=== PATIENT | female | born 1985 | race African-American/Black ===

== ENCOUNTER 2022-09-23 20:49 | Inpatient (IN) | payer OTHER, SELFPAY ==
[2022-09-23 21:55] VITALS: BMI 25.8
--- NOTE | 2022-09-23 23:39 | PC.ADMIT ---
Pt is a 37-year-old female who has a history of schizophrenia, presented via EMS for evaluation of erratic behavior to [facility] ED. Apparently, the patient was walking home from her brother's house when she was exhibiting odd behavior, flashing her chest to cars that were passing by. History from patient is quite limited at this time. She denies any physical complaints. She denies any suicidal homicidal ideation. No auditory visual hallucinations. . She currently presents with thought blocking and presents with no memory of last night?s incident. She appears to be preoccupied.??Patient reporting mild anxiety and depression. States that she is now homeless and needs a new place to live. Patient denies any SI, AH, or VH. Patient does endorse some HI but did not elaborate to who she has these feelings for. Patient reported generalized body aches. Patient was cooperative with admission.
[2022-09-24] MEDS: Cariprazine HCl 3 MG CAPSULE PO (08:11)
[2022-09-24 08:47] VITALS: BP 126/76; PULSE 84; RESP 18; TEMP 36.3; O2SAT 94
[2022-09-24] MEDS: glipiZIDE 5 MG TABLET PO (09:02)
[2022-09-24] MEDS: lisinopriL 5 MG TABLET PO (09:02)
[2022-09-24 09:12] LABS: Estimated Average Glucose 292 mg/dL; Hemoglobin A1c % 11.8 %
[2022-09-24 09:41] LABS: Alanine Aminotransferase 34 U/L (0-31); Albumin Level 4.2 g/dL (3.5-5.0); Alkaline Phosphatase 80 U/L (39-117); Anion Gap 12 (12-20); Aspartate Amino Transferase 22 U/L (5-31); Bilirubin Total 0.8 mg/dL (0.0-1.0); Blood Urea Nitrogen 12 mg/dL (9-16); Calcium 9.6 mg/dL (8.4-10.2); Carbon Dioxide 25 mmol/L (22-29); Chloride 104 mmol/L (96-108); Cholesterol 257 mg/dL; Creatinine Clr Calc Pharmacy 87.4; Estimated Glomerular Filt Rate > 60; Glucose Fasting 274 mg/dL (60-99); HDL Cholesterol 48 mg/dL; LDL Cholesterol Calculated 135 mg/dl; Potassium 4.7 mmol/L (3.3-5.1); Sodium 136 mmol/L (135-145); Total Protein 7.4 g/dL (6.5-8.0); Triglycerides 374 mg/dL
[2022-09-24 10:01] LABS: Folate 14.9 ng/mL (> or = 4.0); Free T4 (Free Thyroxine) 0.97 ng/dL (0.71-1.85); Thyroid Stimulating Hormone 0.63 uIU/mL (0.32-4.0); Vitamin B12 492 pg/mL (200-900)
--- NOTE | 2022-09-24 10:05 | P.HPPS_ITS ---
HPI Date of Service: 09/24/22 Chief Complaint: Unspecified Schizophrenia Disorder HPI Narrative: per crisis eval, pt was wandering on the street flashing her chest at passing cars. police/EMS brought her to ED for psych eval. she was unable to provide much Hx to clinicians, asking to be discharged to her brother's home. [facility] noted pt was RIS and cited as her CC, they said i was scratching too much. on interview with MD at [facility], pt reports she is here because, i got energy. they told me i was crashing. 24 hours. i'm not looking for a spirit or something. she states she does not think medication for schizophrenia is warranted. she has no questions or concerns. she appears distracted, with disorganized and blocked thoughts. Past Psychiatric History: schizophrenia by Hx hosps: a few times. numerous, per crisis eval. SA: denies SIB: denies outpt: no current providers Medical Evaluation Reviewed: Hospitalist Eval Pending [facility] Medical History HTN (hypertension) Type 2 diabetes mellitus Family History: denies, none known Social History: per crisis eval, lives with her mother and sometimes stays at her brother's house. stable housing, supportive family. born in [place], moved to [place] as a child. left HS in 9th grade. Substance History: denies, none known Trauma History: none reported Diagnostics Vital Signs (24Hr): Vital Signs - 24 hr 09/24/22 08:47 Temperature 97.4 F Pulse Rate 84 Respiratory Rate 18 Blood Pressure 126/76 Pulse Oximetry 94 Oxygen Delivery Method Room Air BMI result Body Mass Index 25.8 Labs 09/24/22 08:44 Labs: Laboratory Results - last 48 hr 09/24/22 09/24/22 08:44 08:44 Sodium 136 Potassium 4.7 Chloride 104 Carbon Dioxide 25 Anion Gap 12 BUN 12 Creatinine 0.85 Estim Creat Clear Calc 87.4 Estimated GFR > 60 Fasting Glucose 274 H Estimat Average Glucose 292 Hemoglobin A1c % 11.8 Calcium 9.6 Total Bilirubin 0.8 AST 22 ALT 34 H Alkaline Phosphatase 80 Total Protein 7.4 Albumin 4.2 Triglycerides 374 Cholesterol 257 LDL Cholesterol, Calc 135 HDL Cholesterol 48 Vitamin B12 492 Folate 14.9 TSH 0.63 Free T4 0.97 Meds/Allergies Meds Home Medications Medication Instructions Recorded Confirmed Type cariprazine 3 mg capsule (Vraylar) 3 mg PO DAILY 09/23/22 09/23/22 History diphenhydramine HCl 50 mg capsule 50 mg PO Q4-6H PRN Allergic 09/23/22 09/23/22 History Symptoms glipizide 5 mg tablet 5 mg PO DAILY 09/23/22 09/23/22 History lisinopril 5 mg tablet 5 mg PO DAILY 09/23/22 09/23/22 History metformin 500 mg tablet,extended 500 mg PO DAILY@1700 09/23/22 09/23/22 History release 24 hr Allergies Allergies Allergy/AdvReac Type Severity Reaction Status Date / Time No Known Allergies Allergy Verified 09/23/22 21:19 Mental Status Exam Mental Status Exam Narrative: disheveled, dressed in street clothes. cooperative. no PMA/PMR. speech decr amount, loudness. flattened tone. incr latency. thoughts disorganized, intermittently blocked. affect blunted. mood sleepy. denies SI/SIBI/HI/AVH. Assessment & Plan Assessment & Plan (1) Schizophrenia: Status: Acute Code(s): F20.9 - Schizophrenia, unspecified Plan restart vraylar, titrate as tolerated. continue BP meds. Patient educated on: medication risk/benefits Reason for continued inpatient stay Substantial Risk for: inability to function Statement Statement: I have reviewed the history and physical and performed a pertinent examination on my patient. No changes have occurred unless specified. If the History and Physical was not performed prior to admission, the Hospitalist's service will be consulted for completing the admission physical. Time Spent With Patient Time: Total time managing care of this patient today __55__ minutes.
--- NOTE | 2022-09-24 12:37 | HO.PM.IMCN ---
History of Present Illness Data of Consult Service Date: 09/24/22 Requesting physician: Jacques Gonzaelz Primary Care Provider: Unknown Physician HPI Reason for consult: Medical Admission H&P 37-year-old female with history of type 2 diabetes, hypertension admitted to psychiatry with consult placed on hospitalist service for medical H and P. The patient has no complaints. She does have a history of type 2 diabetes and reports compliance with her medication regimen. Reports occasional hyperglycemia in the 200s with dates glucose levels are overall controlled. Does not recall her last A1c, but measured on the unit is 11.8%. Denies etoh use, occasional cigarette smoker, no drug use. No complaints at this time other than seasonal allergies with rhinorrhea and fatigue. Review of Systems Review of Systems: General: No fevers, malaise, unintentional weight loss HEENT: +rhinorrhea. No blurred vision, diplopia. No sore throat, nasal congestion, sinus pain, ear pain Cardiovascular: No chest pain, palpitations, or leg edema Respiratory: No shortness of breath, wheezing, cough GI: No abdominal pain, nausea, vomiting, diarrhea, constipation, melena, hematochezia : No dysuria, hematuria, increased urinary frequency, decreased urinary output MSK: No myalgia, back pain Neuro: No headaches, weakness, paresthesias Skin: No rashes or lesions PMFSH Medical History HTN (hypertension) Type 2 diabetes mellitus Social History Household Members: Other Household Members Other:: homeless Housing: Homeless Do you presently have visiting nurse or other home services: No Patient Tobacco Use Status: Never used Tobacco Tobacco use type: Cigarette Smoked in Last 30 Days: Yes Patient Interested in Nicotine Replacement: No Patient Given Instructions on How to Stop Smoking: No Second Hand Smoke Exposure: Yes Use of substances other than those prescribed or required for medical reasons: No Currently Displaying Signs/Symptoms of Drug Intoxication Withdrawal: No Any prior treatment program specific to substance use: No Have you been hit, kicked, punched, or otherwise hurt by someone within the past year? If so, by whom?: No Do you feel safe in your current relationship?: No Current Relationship Is there a partner from a previous relationship who is making you feel unsafe now?: No Are you made to feel afraid or neglected: No Spiritual Healthcare Practices: Shinto Holiness Healthcare Practices: none reported Cultural Healthcare Practices: none reported Advance Directives: No Advance Directives Information Provided: No Do you have thoughts of harming others: Vague Do you have a plan to hurt others: No Plan Recently lost weight without trying: No How much weight loss: Not applicable Eating poorly because of decreased appetite: No Nutrition screen score: 0 Nutrition Risks: No Nutritional Risk Patient : No : No Poor oral hygiene: No service: No Sexual orientation: Unable to collect Meds Allergies Allergy/AdvReac Type Severity Reaction Status Date / Time No Known Allergies Allergy Verified 09/23/22 21:19 Active Medications: Current Medications Acetaminophen (Acetaminophen 325 Mg Tablet) 650 mg PO Q6H PRN PRN Reason: Headache/Pain Mild Scale (1-3) Al Hydroxide/Mg Hydroxide (Magnesium Hydrox/Alum Hydrox 30 Ml Oral.Susp) 30 ml PO Q6H PRN PRN Reason: Heartburn/Nausea Cariprazine (Cariprazine Hcl 3 Mg Capsule) 3 mg PO DAILY [facility] Last Admin: 09/24/22 08:11 Dose: 3 mg Diphenhydramine HCl (Diphenhydramine Hcl 25 Mg Capsule) 50 mg PO Q4H PRN PRN Reason: Allergic Symptoms Glipizide (Glipizide 5 Mg Tablet) 5 mg PO DAILY [facility] Last Admin: 09/24/22 09:02 Dose: 5 mg Hydroxyzine HCl (Hydroxyzine Hcl 25 Mg Tablet) 25 mg PO Q6H PRN PRN Reason: Anxiety Lisinopril (Lisinopril 5 Mg Tablet) 5 mg PO DAILY [facility]; Protocol Last Admin: 09/24/22 09:02 Dose: 5 mg Magnesium Hydroxide (Milk Of Magnesia 30 Ml Oral.Susp) 30 ml PO DAILY PRN PRN Reason: Constipation Metformin HCl (Metformin Hcl Er 500 Mg Tab.Er.24h) 500 mg PO DAILY@1700 LOBO Nicotine Polacrilex (Nicotine Polacrilex 2 Mg Gum) 4 mg BUCCAL Q2H PRN PRN Reason: Nicotine Cravings Trazodone HCl (Trazodone Hcl 50 Mg Tablet) 50 mg PO BEDTIME MRX1 PRN PRN Reason: Insomnia Home Medications Medication Instructions Recorded Confirmed Last Taken Type cariprazine 3 mg capsule (Vraylar) 3 mg PO DAILY 09/23/22 09/23/22 Unknown History diphenhydramine HCl 50 mg capsule 50 mg PO Q4-6H PRN Allergic 09/23/22 09/23/22 Unknown History Symptoms glipizide 5 mg tablet 5 mg PO DAILY 09/23/22 09/23/22 Unknown History lisinopril 5 mg tablet 5 mg PO DAILY 09/23/22 09/23/22 Unknown History metformin 500 mg tablet,extended 500 mg PO DAILY@1700 09/23/22 09/23/22 Unknown History release 24 hr Physical Exam Vital Signs and Narrative: Vital Signs: Last Vital Signs Temp 97.4 F 09/24/22 08:47 Pulse 84 09/24/22 08:47 Resp 18 09/24/22 08:47 BP 126/76 09/24/22 08:47 Pulse Ox 94 09/24/22 08:47 O2 Del Method Room Air 09/24/22 08:47 BMI result Body Mass Index 25.8 Constitutional - Awake and Alert, No apparent distress Eyes - PERRLA, EOMI Cardiovascular - S1S2, RRR, No edema Respiratory - Normal lung expansion, Normal respiratory effort, No respiratory distress, CTA bilaterally Gastrointestinal - NT / ND; +BS; No rebound or guarding Extremities - no calf tenderness bilaterally, no swelling Musculoskeletal - Normal inspection, normal ROM Skin - Warm/Dry Neurological - Alert & oriented x3, CN II-XII in tact, 5/5 strength BUE and BLE Psychological - Appropriate affect Results Labs 09/24/22 08:44 Labs: Laboratory Results - last 24 hr 09/24/22 09/24/22 08:44 08:44 Anion Gap 12 Estim Creat Clear Calc 87.4 Estimated GFR > 60 Fasting Glucose 274 H Estimat Average Glucose 292 Hemoglobin A1c % 11.8 Calcium 9.6 Total Bilirubin 0.8 AST 22 ALT 34 H Alkaline Phosphatase 80 Total Protein 7.4 Albumin 4.2 Triglycerides 374 Cholesterol 257 LDL Cholesterol, Calc 135 HDL Cholesterol 48 Vitamin B12 492 Folate 14.9 TSH 0.63 Free T4 0.97 Assessment and Plan (1) Routine medical exam: Status: Acute Plan 37-year-old female with history of type 2 diabetes, hypertension admitted to psychiatry with consult placed on hospitalist service for medical H and P. #Mood disorder -plan per psych #Type 2 diabetes- uncontrolled iwth hyperglycemia -A1c 11.8% -Continue metformin, glipizide -Add humalog SSI -POC glucose -Diabetic diet #HTN- reasonably controlled -continue lisinopril Thank you for this consult. Will continue following to monitor glucose levels. Time Spent With Patient Time: Total time managing care of this patient today ____ minutes.
[2022-09-24 17:45] LABS: Glucose, Whole Blood 282 mg/dL (60-115)
[2022-09-24] MEDS: metFORMIN HCl ER 500 MG TAB.ER.24H PO (17:51)
[2022-09-24] MEDS: Insulin Lispro 100 UNIT/ML 3 ML VIAL SUBCUT ×2 (17:51→20:42)
[2022-09-24 20:20] VITALS: BP 104/56; PULSE 70; RESP 16; TEMP 37.1; O2SAT 100
[2022-09-24 20:40] LABS: Glucose, Whole Blood 215 mg/dL (60-115)
[2022-09-25 06:00] VITALS: BP 128/76; PULSE 80; RESP 16; TEMP 36.4; O2SAT 100
[2022-09-25 08:26] LABS: Glucose, Whole Blood 253 mg/dL (60-115)
[2022-09-25] MEDS: lisinopriL 5 MG TABLET PO (09:09)
[2022-09-25] MEDS: glipiZIDE 5 MG TABLET PO (09:09)
[2022-09-25] MEDS: Cariprazine HCl 1.5 MG CAPSULE 4.5 MG PO (09:09)
[2022-09-25] MEDS: Insulin Lispro 100 UNIT/ML 3 ML VIAL SUBCUT ×4 (09:10→22:27)
[2022-09-25 12:16] LABS: Glucose, Whole Blood 203 mg/dL (60-115)
--- NOTE | 2022-09-25 15:43 | HO.PSYCHPN ---
Subjective Subjective Date of Service: 09/25/22 Reason For Visit: Unspecified Schizophrenia Disorder Interim History: feeling a little sleepy and tired, but i feel better. agreeable to change medications to so as to not be sedated by them. per staff, nervous. no dep. taking vraylar. slept well. Mental Status Exam Mental Status Exam Narrative: disheveled, dressed in street clothes. cooperative. no PMA/PMR. speech decr amount, loudness. flattened tone. incr latency. thoughts disorganized, intermittently blocked. affect blunted. mood a little sleepy and tired, but i feel better. denies SI/SIBI/HI/AVH. Diagnostics Vital Signs (24Hr): Vital Signs - 24 hr 09/24/22 20:20 09/25/22 06:00 Temperature 98.7 F 97.6 F Pulse Rate 70 80 Respiratory Rate 16 16 Blood Pressure 104/56 L 128/76 Pulse Oximetry 100 100 Oxygen Delivery Method Room Air Room Air BMI result Body Mass Index 25.8 Labs 09/24/22 08:44 Labs: Laboratory Results - last 48 hr 09/24/22 09/24/22 09/24/22 08:44 08:44 17:42 Sodium 136 Potassium 4.7 Chloride 104 Carbon Dioxide 25 Anion Gap 12 BUN 12 Creatinine 0.85 Estim Creat Clear Calc 87.4 Estimated GFR > 60 POC Glucose 282 H Fasting Glucose 274 H Estimat Average Glucose 292 Hemoglobin A1c % 11.8 Calcium 9.6 Total Bilirubin 0.8 AST 22 ALT 34 H Alkaline Phosphatase 80 Total Protein 7.4 Albumin 4.2 Triglycerides 374 Cholesterol 257 LDL Cholesterol, Calc 135 HDL Cholesterol 48 Vitamin B12 492 Folate 14.9 TSH 0.63 Free T4 0.97 09/24/22 09/25/22 09/25/22 20:36 08:23 12:12 Sodium Potassium Chloride Carbon Dioxide Anion Gap BUN Creatinine Estim Creat Clear Calc Estimated GFR POC Glucose 215 H 253 H 203 H Fasting Glucose Estimat Average Glucose Hemoglobin A1c % Calcium Total Bilirubin AST ALT Alkaline Phosphatase Total Protein Albumin Triglycerides Cholesterol LDL Cholesterol, Calc HDL Cholesterol Vitamin B12 Folate TSH Free T4 Medications Medications Current Medications Acetaminophen (Acetaminophen 325 Mg Tablet) 650 mg PO Q6H PRN PRN Reason: Headache/Pain Mild Scale (1-3) Al Hydroxide/Mg Hydroxide (Magnesium Hydrox/Alum Hydrox 30 Ml Oral.Susp) 30 ml PO Q6H PRN PRN Reason: Heartburn/Nausea Cariprazine (Cariprazine Hcl 1.5 Mg Capsule) 4.5 mg PO DAILY [facility] Last Admin: 09/25/22 09:09 Dose: 4.5 mg Diphenhydramine HCl (Diphenhydramine Hcl 25 Mg Capsule) 50 mg PO Q4H PRN PRN Reason: Allergic Symptoms Glipizide (Glipizide 5 Mg Tablet) 5 mg PO DAILY [facility] Last Admin: 09/25/22 09:09 Dose: 5 mg Glucose (Glucose Gel 15 Gm Gel..Gram.) 15 gm PO Q15M PRN; Protocol PRN Reason: per Hypoglycemia Standing Ord. Hydroxyzine HCl (Hydroxyzine Hcl 25 Mg Tablet) 25 mg PO Q6H PRN PRN Reason: Anxiety Dextrose (D10) 250 mls @ 750 mls/hr IV Q15M PRN; Protocol PRN Reason: per Hypoglycemia Standing Ord. Insulin Human Lispro (Insulin Lispro 100 Unit/Ml 3 Ml Vial) 0 unit SUBCUT QIDACHS [facility]; Protocol Last Admin: 09/25/22 13:03 Dose: 4 unit Lisinopril (Lisinopril 5 Mg Tablet) 5 mg PO DAILY [facility]; Protocol Last Admin: 09/25/22 09:09 Dose: 5 mg Magnesium Hydroxide (Milk Of Magnesia 30 Ml Oral.Susp) 30 ml PO DAILY PRN PRN Reason: Constipation Metformin HCl (Metformin Hcl Er 500 Mg Tab.Er.24h) 500 mg PO DAILY@1700 [facility] Last Admin: 09/24/22 17:51 Dose: 500 mg Nicotine Polacrilex (Nicotine Polacrilex 2 Mg Gum) 4 mg BUCCAL Q2H PRN PRN Reason: Nicotine Cravings Trazodone HCl (Trazodone Hcl 50 Mg Tablet) 50 mg PO BEDTIME MRX1 PRN PRN Reason: Insomnia Allergies Allergies Allergy/AdvReac Type Severity Reaction Status Date / Time No Known Allergies Allergy Verified 09/23/22 21:19 Assessment & Plan Assessment & Plan (1) Schizophrenia: Status: Acute Code(s): F20.9 - Schizophrenia, unspecified Plan 09/24: restart vraylar, titrate as tolerated. continue BP meds. 09/25: change vraylar to HS. dosing increased from 3 mg daily to 4.5 mg daily yesterday. Reason for continued inpatient stay Substantial Risk for: inability to function and rapid decompensation Time Spent With Patient Time: Total time managing care of this patient today ____ minutes.
[2022-09-25] MEDS: Acetaminophen 325 MG TABLET 650 MG PO (15:47)
[2022-09-25 17:29] LABS: Glucose, Whole Blood 200 mg/dL (60-115)
[2022-09-25] MEDS: metFORMIN HCl ER 500 MG TAB.ER.24H PO (18:19)
[2022-09-25 20:11] VITALS: BP 137/81; PULSE 79; RESP 18; TEMP 36.1; O2SAT 100
[2022-09-25 22:02] LABS: Glucose, Whole Blood 324 mg/dL (60-115)
[2022-09-25] MEDS: Cariprazine HCl 3 MG CAPSULE PO (22:27)
[2022-09-26 08:09] LABS: Glucose, Whole Blood 349 mg/dL (60-115)
[2022-09-26] MEDS: Insulin Lispro 100 UNIT/ML 3 ML VIAL SUBCUT ×3 (09:12→21:33)
[2022-09-26 10:03] VITALS: BP 122/77; PULSE 84; RESP 18; TEMP 36.2; O2SAT 100
[2022-09-26 12:07] LABS: Glucose, Whole Blood 212 mg/dL (60-115)
[2022-09-26 12:16] VITALS: BMI 30.8
[2022-09-26] MEDS: lisinopriL 5 MG TABLET PO (14:20)
[2022-09-26] MEDS: glipiZIDE 5 MG TABLET PO (14:21)
--- NOTE | 2022-09-26 16:00 | P.PNPSI_ITS ---
Subjective Subjective Date of Service: 09/26/22 Reason For Visit: Unspecified Schizophrenia Disorder Interim History: slept much better last night. asking about when she might be discharged, discuss possibly mid-late next week. per staff, wants to be discharged. slept in sensory room most of NOC. Mental Status Exam Mental Status Exam Narrative: disheveled, dressed in street clothes. cooperative. no PMA/PMR. speech nml amount, loudness. flattened tone. incr latency. thoughts more organized disorganized, much less frequently blocked. affect constricted. no SI/SIBI/HI/AVH expressed. Diagnostics Vital Signs (24Hr): Vital Signs - 24 hr 09/25/22 20:11 09/26/22 10:03 Temperature 97.0 F 97.2 F Pulse Rate 79 84 Respiratory Rate 18 18 Blood Pressure 137/81 122/77 Pulse Oximetry 100 100 Oxygen Delivery Method Room Air Room Air BMI result Body Mass Index 30.8 Labs 09/24/22 08:44 Labs: Laboratory Results - last 48 hr 09/24/22 09/24/22 09/25/22 17:42 20:36 08:23 POC Glucose 282 H 215 H 253 H 09/25/22 09/25/22 09/25/22 12:12 17:25 21:55 POC Glucose 203 H 200 H 324 H 09/26/22 09/26/22 08:05 12:03 POC Glucose 349 H 212 H Medications Medications Current Medications Acetaminophen (Acetaminophen 325 Mg Tablet) 650 mg PO Q6H PRN PRN Reason: Headache/Pain Mild Scale (1-3) Last Admin: 09/25/22 15:47 Dose: 650 mg Al Hydroxide/Mg Hydroxide (Magnesium Hydrox/Alum Hydrox 30 Ml Oral.Susp) 30 ml PO Q6H PRN PRN Reason: Heartburn/Nausea Cariprazine (Cariprazine Hcl 1.5 Mg Capsule) 4.5 mg PO BEDTIME [facility] Diphenhydramine HCl (Diphenhydramine Hcl 25 Mg Capsule) 50 mg PO Q4H PRN PRN Reason: Allergic Symptoms Glipizide (Glipizide 5 Mg Tablet) 5 mg PO DAILY [facility] Last Admin: 09/26/22 14:21 Dose: 5 mg Glucose (Glucose Gel 15 Gm Gel..Gram.) 15 gm PO Q15M PRN; Protocol PRN Reason: per Hypoglycemia Standing Ord. Hydroxyzine HCl (Hydroxyzine Hcl 25 Mg Tablet) 25 mg PO Q6H PRN PRN Reason: Anxiety Dextrose (D10) 250 mls @ 750 mls/hr IV Q15M PRN; Protocol PRN Reason: per Hypoglycemia Standing Ord. Insulin Human Lispro (Insulin Lispro 100 Unit/Ml 3 Ml Vial) 0 unit SUBCUT QIDACHS [facility]; Protocol Last Admin: 09/26/22 14:17 Dose: 4 unit Lisinopril (Lisinopril 5 Mg Tablet) 5 mg PO DAILY [facility]; Protocol Last Admin: 09/26/22 14:20 Dose: 5 mg Magnesium Hydroxide (Milk Of Magnesia 30 Ml Oral.Susp) 30 ml PO DAILY PRN PRN Reason: Constipation Metformin HCl (Metformin Hcl Er 500 Mg Tab.Er.24h) 500 mg PO DAILY@1700 [facility] Last Admin: 09/25/22 18:19 Dose: 500 mg Nicotine Polacrilex (Nicotine Polacrilex 2 Mg Gum) 4 mg BUCCAL Q2H PRN PRN Reason: Nicotine Cravings Trazodone HCl (Trazodone Hcl 50 Mg Tablet) 50 mg PO BEDTIME MRX1 PRN PRN Reason: Insomnia Allergies Allergies Allergy/AdvReac Type Severity Reaction Status Date / Time No Known Allergies Allergy Verified 09/23/22 21:19 Assessment & Plan Assessment & Plan (1) Schizophrenia: Status: Acute Code(s): F20.9 - Schizophrenia, unspecified Plan 09/24: restart vraylar, titrate as tolerated. continue BP meds. 09/25: change vraylar to HS. dosing increased from 3 mg daily to 4.5 mg daily yesterday. 09/26: daily improvements in Sx. continue current mgmt. Reason for continued inpatient stay Substantial Risk for: inability to function and rapid decompensation Time Spent With Patient Time: Total time managing care of this patient today __25__ minutes.
[2022-09-26 17:33] LABS: Glucose, Whole Blood 171 mg/dL (60-115)
[2022-09-26 21:28] LABS: Glucose, Whole Blood 245 mg/dL (60-115)
[2022-09-26 21:45] VITALS: BP 113/65; PULSE 80; RESP 18; TEMP 36.3; O2SAT 100
[2022-09-26] MEDS: Cariprazine HCl 1.5 MG CAPSULE 4.5 MG PO (22:05)
[2022-09-27 08:38] LABS: Glucose, Whole Blood 259 mg/dL (60-115)
[2022-09-27 08:40] VITALS: BP 137/86; PULSE 103; RESP 20; TEMP 36.7; O2SAT 100
--- NOTE | 2022-09-27 09:54 | PC.NURSE ---
Patient declined all AM meds including insulin. Provider aware.
--- NOTE | 2022-09-27 10:08 | HO.PSYCHPN ---
Subjective Subjective Date of Service: 09/27/22 Reason For Visit: Unspecified Schizophrenia Disorder Subjective Notes: Conditional Voluntary Healthcare Proxy: No Guardianship: No Medical Problems Affecting Mental Status: Yes (diabetes, intermittently doesn't take her medication, ) Interim History: Pt with no complaints other than refusing her medications because they cause gi s/e won't allow us to give her anything for reflux having done a course of meds for that Very disorganized and nonsensical otherwise in conversation there is a language barrier and used hospital gatekeeper but made it no clearer- nurse and pt were able to arrange a deal for her to agree to insulin at least for high poc Medication Compliance: No Side effects from medications: Yes (co gi s/e , would not agree to taking meds 30 min apart to decrease upset) Attending Groups: No Review of Systems Acute medical concerns: Yes diabetic non compliance Review of Systems: as above Mental Status Exam Mental Status Exam Patient Appearance: Well Grooomed Patient Orientation: Person, Place and Situation Level of Consciousness: Awake and Restless Patient Behavior: Passive, Restless, Resistive to Care and Poor Eye Contact Mood Description: Calm Affect Description: Flat Ability to Follow Directions: Poor Speech Pattern: Impoverished Hallucinations: None Delusions: Not Present Thought Content: positive for Douglas and positive for Disorganized Depressive Symptoms: Diff. Making Decisions Abnormal Motor Activity Signs and Symptoms: Restlessness Judgement: Poor Diagnostics Vital Signs (24Hr): Vital Signs - 24 hr 09/26/22 21:45 09/27/22 08:40 Temperature 97.3 F 98.1 F Pulse Rate 80 103 H Respiratory Rate 18 20 Blood Pressure 113/65 137/86 Pulse Oximetry 100 100 Oxygen Delivery Method Room Air Room Air BMI result Body Mass Index 30.8 Labs 09/24/22 08:44 Labs: Laboratory Results - last 48 hr 09/25/22 09/25/22 09/25/22 12:12 17:25 21:55 POC Glucose 203 H 200 H 324 H 09/26/22 09/26/22 09/26/22 08:05 12:03 17:28 POC Glucose 349 H 212 H 171 H 09/26/22 09/27/22 21:24 08:29 POC Glucose 245 H 259 H Medications Medications Current Medications Acetaminophen (Acetaminophen 325 Mg Tablet) 650 mg PO Q6H PRN PRN Reason: Headache/Pain Mild Scale (1-3) Last Admin: 09/25/22 15:47 Dose: 650 mg Al Hydroxide/Mg Hydroxide (Magnesium Hydrox/Alum Hydrox 30 Ml Oral.Susp) 30 ml PO Q6H PRN PRN Reason: Heartburn/Nausea Cariprazine (Cariprazine Hcl 1.5 Mg Capsule) 4.5 mg PO BEDTIME [facility] Last Admin: 09/26/22 22:05 Dose: 4.5 mg Diphenhydramine HCl (Diphenhydramine Hcl 25 Mg Capsule) 50 mg PO Q4H PRN PRN Reason: Allergic Symptoms Glipizide (Glipizide 5 Mg Tablet) 5 mg PO DAILY [facility] Last Admin: 09/27/22 09:22 Dose: Not Given Glucose (Glucose Gel 15 Gm Gel..Gram.) 15 gm PO Q15M PRN; Protocol PRN Reason: per Hypoglycemia Standing Ord. Hydroxyzine HCl (Hydroxyzine Hcl 25 Mg Tablet) 25 mg PO Q6H PRN PRN Reason: Anxiety Dextrose (D10) 250 mls @ 750 mls/hr IV Q15M PRN; Protocol PRN Reason: per Hypoglycemia Standing Ord. Insulin Human Lispro (Insulin Lispro 100 Unit/Ml 3 Ml Vial) 0 unit SUBCUT QIDACHS [facility]; Protocol Last Admin: 09/27/22 09:22 Dose: Not Given Lisinopril (Lisinopril 5 Mg Tablet) 5 mg PO DAILY [facility]; Protocol Last Admin: 09/27/22 09:22 Dose: Not Given Magnesium Hydroxide (Milk Of Magnesia 30 Ml Oral.Susp) 30 ml PO DAILY PRN PRN Reason: Constipation Metformin HCl (Metformin Hcl Er 500 Mg Tab.Er.24h) 500 mg PO DAILY@1700 [facility] Last Admin: 09/26/22 19:01 Dose: Not Given Nicotine Polacrilex (Nicotine Polacrilex 2 Mg Gum) 4 mg BUCCAL Q2H PRN PRN Reason: Nicotine Cravings Trazodone HCl (Trazodone Hcl 50 Mg Tablet) 50 mg PO BEDTIME MRX1 PRN PRN Reason: Insomnia Allergies Allergies Allergy/AdvReac Type Severity Reaction Status Date / Time No Known Allergies Allergy Verified 09/23/22 21:19 Assessment & Plan Assessment & Plan (1) Schizophrenia: Status: Acute Code(s): F20.9 - Schizophrenia, unspecified Assessment and Plan: seems quite disorganized thought process 09/27 - on vraylar- 4.5mg may need more time Plan 09/24: restart vraylar, titrate as tolerated. continue BP meds. 09/25: change vraylar to HS. dosing increased from 3 mg daily to 4.5 mg daily yesterday. 09/26: daily improvements in Sx. continue current mgmt. Patient educated on: medication risk/benefits and medical condition Informed Consent: does not understand and further education needed Reason for continued inpatient stay Substantial Risk for: inability to function, rapid decompensation and med/psych decompensation Time Spent With Patient Time: Total time managing care of this patient today ____ minutes.
--- NOTE | 2022-09-27 11:18 | PM.EVENT ---
Event Note Date of Service: 09/27/22 Event Note: Follow-up for patient with elevated POC glucose levels levels. Patient continues to have elevated blood sugar, routinely in the 200s to 300s. Will start on 10 units Lantus daily in addition to her other diabetic medications. Will continue to follow for now to monitor glucose levels and chest insulin as warranted. Time Spent With Patient Time: Total time managing care of this patient today ____ minutes.
[2022-09-27 12:10] LABS: Glucose, Whole Blood 200 mg/dL (60-115)
[2022-09-27] MEDS: Insulin Glargine,Hum.rec.anlog 100 UNIT/ML 10 ML VIAL 10 UNIT SUBCUT (12:48)
[2022-09-27] MEDS: Insulin Lispro 100 UNIT/ML 3 ML VIAL SUBCUT ×3 (12:50→20:55)
[2022-09-27 17:18] LABS: Glucose, Whole Blood 284 mg/dL (60-115)
[2022-09-27] MEDS: metFORMIN HCl ER 500 MG TAB.ER.24H PO (17:52)
[2022-09-27 20:41] VITALS: BP 124/87; PULSE 93; RESP 18; TEMP 36.7; O2SAT 99
[2022-09-27 20:50] LABS: Glucose, Whole Blood 217 mg/dL (60-115)
[2022-09-27] MEDS: Cariprazine HCl 1.5 MG CAPSULE 4.5 MG PO (22:06)
[2022-09-28 08:22] LABS: Glucose, Whole Blood 265 mg/dL (60-115)
[2022-09-28 09:05] VITALS: BP 125/77; PULSE 75; RESP 18; TEMP 36.8; O2SAT 100
[2022-09-28] MEDS: Insulin Lispro 100 UNIT/ML 3 ML VIAL SUBCUT ×3 (09:15→21:30)
[2022-09-28] MEDS: Insulin Glargine,Hum.rec.anlog 100 UNIT/ML 10 ML VIAL 10 UNIT SUBCUT (09:15)
[2022-09-28] MEDS: glipiZIDE 5 MG TABLET PO (09:17)
[2022-09-28] MEDS: lisinopriL 5 MG TABLET PO (09:17)
--- NOTE | 2022-09-28 10:11 | HO.PSYCHPN ---
Subjective Subjective Date of Service: 09/28/22 Reason For Visit: Unspecified Schizophrenia Disorder Subjective Notes: Conditional Voluntary Healthcare Proxy: No Guardianship: No Medical Problems Affecting Mental Status: Yes (diabetes intermittent compliance ) Interim History: Pt reports feeling calmer today - taking all of her medication since meeting yesterday- some bad thoughts and feelings but no si - some AH - and confused thinking Medication Compliance: Yes Side effects from medications: No Attending Groups: Intermittent Review of Systems Acute medical concerns: No taking diabetes meds again Medical Review of Systems: unchanged Mental Status Exam Mental Status Exam Narrative: playing with hair, Patient Appearance: Well Grooomed Patient Orientation: Person, Place and Situation Level of Consciousness: Awake Patient Behavior: Passive, Restless and Poor Eye Contact Mood Description: Anxious Affect Description: Constricted Patient Cognition Impaired: No Ability to Follow Directions: Fair Speech Pattern: Clear Hallucinations: Auditory Thought Process: Distracted Thought Content: positive for Poverty of Content and positive for Thought Blocking Depressive Symptoms: Diff. Making Decisions Abnormal Motor Activity Signs and Symptoms: Restlessness Judgement: Fair Diagnostics Vital Signs (24Hr): Vital Signs - 24 hr 09/27/22 20:41 09/28/22 09:05 Temperature 98.0 F 98.2 F Pulse Rate 93 75 Respiratory Rate 18 18 Blood Pressure 124/87 125/77 Pulse Oximetry 99 100 Oxygen Delivery Method Room Air Room Air BMI result Body Mass Index 30.8 Labs 09/24/22 08:44 Labs: Laboratory Results - last 48 hr 09/26/22 09/26/22 09/26/22 12:03 17:28 21:24 POC Glucose 212 H 171 H 245 H 09/27/22 09/27/22 09/27/22 08:29 12:05 17:13 POC Glucose 259 H 200 H 284 H 09/27/22 09/28/22 20:46 08:17 POC Glucose 217 H 265 H Medications Medications Current Medications Acetaminophen (Acetaminophen 325 Mg Tablet) 650 mg PO Q6H PRN PRN Reason: Headache/Pain Mild Scale (1-3) Last Admin: 09/25/22 15:47 Dose: 650 mg Al Hydroxide/Mg Hydroxide (Magnesium Hydrox/Alum Hydrox 30 Ml Oral.Susp) 30 ml PO Q6H PRN PRN Reason: Heartburn/Nausea Cariprazine (Cariprazine Hcl 1.5 Mg Capsule) 4.5 mg PO BEDTIME LOBO Last Admin: 09/27/22 22:06 Dose: 4.5 mg Diphenhydramine HCl (Diphenhydramine Hcl 25 Mg Capsule) 50 mg PO Q4H PRN PRN Reason: Allergic Symptoms Glipizide (Glipizide 5 Mg Tablet) 5 mg PO DAILY [facility] Last Admin: 09/28/22 09:17 Dose: 5 mg Glucose (Glucose Gel 15 Gm Gel..Gram.) 15 gm PO Q15M PRN; Protocol PRN Reason: per Hypoglycemia Standing Ord. Hydroxyzine HCl (Hydroxyzine Hcl 25 Mg Tablet) 25 mg PO Q6H PRN PRN Reason: Anxiety Dextrose (D10) 250 mls @ 750 mls/hr IV Q15M PRN; Protocol PRN Reason: per Hypoglycemia Standing Ord. Insulin Glargine (Insulin Glargine,Hum.Rec.Anlog 100 Unit/Ml 10 Ml Vial) 10 unit SUBCUT DAILY [facility] Last Admin: 09/28/22 09:15 Dose: 10 unit Insulin Human Lispro (Insulin Lispro 100 Unit/Ml 3 Ml Vial) 0 unit SUBCUT QIDACHS [facility]; Protocol Last Admin: 09/28/22 09:15 Dose: 6 unit Lisinopril (Lisinopril 5 Mg Tablet) 5 mg PO DAILY [facility]; Protocol Last Admin: 09/28/22 09:17 Dose: 5 mg Magnesium Hydroxide (Milk Of Magnesia 30 Ml Oral.Susp) 30 ml PO DAILY PRN PRN Reason: Constipation Metformin HCl (Metformin Hcl Er 500 Mg Tab.Er.24h) 500 mg PO DAILY@1700 [facility] Last Admin: 09/27/22 17:52 Dose: 500 mg Nicotine Polacrilex (Nicotine Polacrilex 2 Mg Gum) 4 mg BUCCAL Q2H PRN PRN Reason: Nicotine Cravings Trazodone HCl (Trazodone Hcl 50 Mg Tablet) 50 mg PO BEDTIME MRX1 PRN PRN Reason: Insomnia Allergies Allergies Allergy/AdvReac Type Severity Reaction Status Date / Time No Known Allergies Allergy Verified 09/23/22 21:19 Assessment & Plan Assessment & Plan (1) Schizophrenia: Status: Acute Code(s): F20.9 - Schizophrenia, unspecified Assessment and Plan: seems quite disorganized thought process 09/27 - on vraylar- 4.5mg may need more time Plan 09/24: restart vraylar, titrate as tolerated. continue BP meds. 09/25: change vraylar to HS. dosing increased from 3 mg daily to 4.5 mg daily yesterday. 09/26: daily improvements in Sx. continue current mgmt. Reason for continued inpatient stay Substantial Risk for: med/psych decompensation Time Spent With Patient Time: Total time managing care of this patient today ____ minutes.
--- NOTE | 2022-09-28 12:15 | PC.NURSE ---
Patient signed a 3 day notice, refuse collector present.
[2022-09-28 12:28] LABS: Glucose, Whole Blood 211 mg/dL (60-115)
[2022-09-28 17:22] LABS: Glucose, Whole Blood 99 mg/dL (60-115)
[2022-09-28] MEDS: metFORMIN HCl ER 500 MG TAB.ER.24H PO (18:06)
[2022-09-28 20:10] VITALS: BP 119/76; PULSE 97; RESP 16; TEMP 36.6; O2SAT 96
[2022-09-28 21:02] LABS: Glucose, Whole Blood 169 mg/dL (60-115)
[2022-09-28] MEDS: Cariprazine HCl 1.5 MG CAPSULE 4.5 MG PO (21:30)
[2022-09-29 08:34] LABS: Glucose, Whole Blood 320 mg/dL (60-115)
[2022-09-29] MEDS: lisinopriL 5 MG TABLET PO (08:55)
[2022-09-29] MEDS: Insulin Lispro 100 UNIT/ML 3 ML VIAL SUBCUT ×3 (08:55→20:38)
[2022-09-29] MEDS: glipiZIDE 5 MG TABLET PO (08:55)
[2022-09-29] MEDS: Insulin Glargine,Hum.rec.anlog 100 UNIT/ML 10 ML VIAL 10 UNIT SUBCUT (08:56)
[2022-09-29 10:48] VITALS: BP 121/87; PULSE 86; RESP 18; TEMP 36.7; O2SAT 97
[2022-09-29 12:38] LABS: Glucose, Whole Blood 75 mg/dL (60-115)
--- NOTE | 2022-09-29 16:05 | P.PNPSI_ITS ---
Subjective Subjective Date of Service: 09/29/22 Reason For Visit: Unspecified Schizophrenia Disorder Interim History: pt difficult to understand. does appear a bit more organized and less bizarre than at admission. planning to discharge weds. on being asked about her mood, she replies that she is eating better. per staff, 3-day up weds. isolative, withdrawn. slept 6+ hours. TV makes her nervous. [id number] anxiety. reporting 10/10 depression. denies SI/HI. +RIS. med and meal compliant. Mental Status Exam Mental Status Exam Narrative: disheveled, dressed in street clothes. cooperative. no PMA/PMR. speech nml amount, loudness. flattened tone. nml latency. thoughts more organized, no thought blocking. affect more flexible. mood eating better. no SI/SIBI/HI/AVH expressed. Diagnostics Vital Signs (24Hr): Vital Signs - 24 hr 09/28/22 20:10 09/29/22 10:48 Temperature 97.8 F 98.0 F Pulse Rate 97 86 Respiratory Rate 16 18 Blood Pressure 119/76 121/87 Pulse Oximetry 96 97 Oxygen Delivery Method Room Air Room Air BMI result Body Mass Index 30.8 Labs 09/24/22 08:44 Labs: Laboratory Results - last 48 hr 09/27/22 09/27/22 09/28/22 17:13 20:46 08:17 POC Glucose 284 H 217 H 265 H 09/28/22 09/28/22 09/28/22 12:19 17:04 20:49 POC Glucose 211 H 99 169 H 09/29/22 09/29/22 08:26 12:34 POC Glucose 320 H 75 Medications Medications Current Medications Acetaminophen (Acetaminophen 325 Mg Tablet) 650 mg PO Q6H PRN PRN Reason: Headache/Pain Mild Scale (1-3) Last Admin: 09/25/22 15:47 Dose: 650 mg Al Hydroxide/Mg Hydroxide (Magnesium Hydrox/Alum Hydrox 30 Ml Oral.Susp) 30 ml PO Q6H PRN PRN Reason: Heartburn/Nausea Cariprazine (Cariprazine Hcl 1.5 Mg Capsule) 4.5 mg PO BEDTIME LOBO Last Admin: 09/28/22 21:30 Dose: 4.5 mg Diphenhydramine HCl (Diphenhydramine Hcl 25 Mg Capsule) 50 mg PO Q4H PRN PRN Reason: Allergic Symptoms Glipizide (Glipizide 5 Mg Tablet) 5 mg PO DAILY [facility] Last Admin: 09/29/22 08:55 Dose: 5 mg Glucose (Glucose Gel 15 Gm Gel..Gram.) 15 gm PO Q15M PRN; Protocol PRN Reason: per Hypoglycemia Standing Ord. Hydroxyzine HCl (Hydroxyzine Hcl 25 Mg Tablet) 25 mg PO Q6H PRN PRN Reason: Anxiety Dextrose (D10) 250 mls @ 750 mls/hr IV Q15M PRN; Protocol PRN Reason: per Hypoglycemia Standing Ord. Insulin Glargine (Insulin Glargine,Hum.Rec.Anlog 100 Unit/Ml 10 Ml Vial) 10 unit SUBCUT DAILY [facility] Last Admin: 09/29/22 08:56 Dose: 10 unit Insulin Glargine (Insulin Glargine,Hum.Rec.Anlog 100 Unit/Ml 10 Ml Vial) 5 unit SUBCUT BEDTIME [facility] Insulin Human Lispro (Insulin Lispro 100 Unit/Ml 3 Ml Vial) 0 unit SUBCUT QIDACHS [facility]; Protocol Last Admin: 09/29/22 12:39 Dose: Not Given Lisinopril (Lisinopril 5 Mg Tablet) 5 mg PO DAILY [facility]; Protocol Last Admin: 09/29/22 08:55 Dose: 5 mg Magnesium Hydroxide (Milk Of Magnesia 30 Ml Oral.Susp) 30 ml PO DAILY PRN PRN Reason: Constipation Metformin HCl (Metformin Hcl Er 500 Mg Tab.Er.24h) 500 mg PO DAILY@1700 [facility] Last Admin: 09/28/22 18:06 Dose: 500 mg Nicotine Polacrilex (Nicotine Polacrilex 2 Mg Gum) 4 mg BUCCAL Q2H PRN PRN Reason: Nicotine Cravings Trazodone HCl (Trazodone Hcl 50 Mg Tablet) 50 mg PO BEDTIME MRX1 PRN PRN Reason: Insomnia Allergies Allergies Allergy/AdvReac Type Severity Reaction Status Date / Time No Known Allergies Allergy Verified 09/23/22 21:19 Assessment & Plan Assessment & Plan (1) Schizophrenia: Status: Acute Code(s): F20.9 - Schizophrenia, unspecified Plan 09/24: restart vraylar, titrate as tolerated. continue BP meds. 09/25: change vraylar to HS. dosing increased from 3 mg daily to 4.5 mg daily yesterday. 09/26: daily improvements in Sx. continue current mgmt. 09/27: seems quite disorganized thought process - on vraylar- 4.5mg may need more time. 09/29: no change in mgmt. planning to discharge weds upon expiry of 3-day notice. Reason for continued inpatient stay Substantial Risk for: inability to function and rapid decompensation Time Spent With Patient Time: Total time managing care of this patient today __25__ minutes.
[2022-09-29 17:18] LABS: Glucose, Whole Blood 221 mg/dL (60-115)
[2022-09-29] MEDS: metFORMIN HCl ER 500 MG TAB.ER.24H PO (17:57)
[2022-09-29 19:57] LABS: Glucose, Whole Blood 163 mg/dL (60-115)
[2022-09-29 20:05] VITALS: BP 124/64; PULSE 78; RESP 16; TEMP 36.6; O2SAT 99
[2022-09-29] MEDS: Cariprazine HCl 1.5 MG CAPSULE 4.5 MG PO (20:34)
[2022-09-29] MEDS: Insulin Glargine,Hum.rec.anlog 100 UNIT/ML 10 ML VIAL SUBCUT (20:39)
[2022-09-30 07:54] LABS: Glucose, Whole Blood 250 mg/dL (60-115)
[2022-09-30 12:32] LABS: Glucose, Whole Blood 171 mg/dL (60-115)
[2022-09-30] MEDS: Insulin Lispro 100 UNIT/ML 3 ML VIAL SUBCUT (12:43)
--- NOTE | 2022-09-30 13:11 | PM.EVENT ---
Event Note Date of Service: 09/30/22 Event Note: Glucose levels improved with addition of 10 untis lantus am and 5 units at bedtime. Continue as prescribed. Continue humalog on sliding scale, metformin, glipizide. Given Hgb A1c >11%, would recommend continuing insulin on discharge if teachable. Thank you for allowing me to participate in this consult. Signing off at this time. Please do not hesitate to call for further questions. Time Spent With Patient Time: Total time managing care of this patient today ____ minutes.
--- NOTE | 2022-09-30 13:48 | P.DS_ITS ---
DS: Providers Provider Date of Service: 09/30/22 Date of admission: 09/23/22 20:49 Primary care physician: Unknown Physician Consults: 09/23/22 21:19 Consult to Hospitalist Routine Comment: Consulting Provider: Hospitalist Reason For Exam: OSH admission DS: Diagnosis Discharge Diagnosis (1) Schizophrenia: Status: Acute DS: Medications Discharge Medications Home Medications: Home Medications Medication Instructions Recorded Confirmed diphenhydramine HCl 50 mg capsule 50 mg PO Q4-6H PRN Allergic 09/23/22 09/23/22 Symptoms glipizide 5 mg tablet 5 mg PO DAILY 09/23/22 09/23/22 lisinopril 5 mg tablet 5 mg PO DAILY 09/23/22 09/23/22 metformin 500 mg tablet,extended 500 mg PO DAILY@1700 09/23/22 09/23/22 release 24 hr Previous Rx's Medication Instructions Recorded cariprazine 1.5 mg capsule 4.5 mg PO BEDTIME 30 days #90 caps 09/30/22 (Teresa) Mental Status Exam Mental Status Exam Narrative: disheveled, dressed in street clothes. cooperative. no PMA/PMR. speech nml amount, loudness. flattened tone. nml latency. thoughts more organized, no thought blocking. affect more flexible. mood good. no SI/SIBI/HI/AVH. Data Data Completed and Pending Completed studies during hospitalization [Text1]: 09/24/22 09/24/22 09/24/22 08:44 08:44 17:42 Sodium 136 Potassium 4.7 Chloride 104 Carbon Dioxide 25 Anion Gap 12 BUN 12 Creatinine 0.85 Estim Creat Clear Calc 87.4 Estimated GFR > 60 POC Glucose 282 H Fasting Glucose 274 H Estimat Average Glucose 292 Hemoglobin A1c % 11.8 Calcium 9.6 Total Bilirubin 0.8 AST 22 ALT 34 H Alkaline Phosphatase 80 Total Protein 7.4 Albumin 4.2 Triglycerides 374 Cholesterol 257 LDL Cholesterol, Calc 135 HDL Cholesterol 48 Vitamin B12 492 Folate 14.9 TSH 0.63 Free T4 0.97 09/24/22 09/25/22 09/25/22 20:36 08:23 12:12 Sodium Potassium Chloride Carbon Dioxide Anion Gap BUN Creatinine Estim Creat Clear Calc Estimated GFR POC Glucose 215 H 253 H 203 H Fasting Glucose Estimat Average Glucose Hemoglobin A1c % Calcium Total Bilirubin AST ALT Alkaline Phosphatase Total Protein Albumin Triglycerides Cholesterol LDL Cholesterol, Calc HDL Cholesterol Vitamin B12 Folate TSH Free T4 09/25/22 09/25/22 09/26/22 17:25 21:55 08:05 Sodium Potassium Chloride Carbon Dioxide Anion Gap BUN Creatinine Estim Creat Clear Calc Estimated GFR POC Glucose 200 H 324 H 349 H Fasting Glucose Estimat Average Glucose Hemoglobin A1c % Calcium Total Bilirubin AST ALT Alkaline Phosphatase Total Protein Albumin Triglycerides Cholesterol LDL Cholesterol, Calc HDL Cholesterol Vitamin B12 Folate TSH Free T4 09/26/22 09/26/22 09/26/22 12:03 17:28 21:24 Sodium Potassium Chloride Carbon Dioxide Anion Gap BUN Creatinine Estim Creat Clear Calc Estimated GFR POC Glucose 212 H 171 H 245 H Fasting Glucose Estimat Average Glucose Hemoglobin A1c % Calcium Total Bilirubin AST ALT Alkaline Phosphatase Total Protein Albumin Triglycerides Cholesterol LDL Cholesterol, Calc HDL Cholesterol Vitamin B12 Folate TSH Free T4 09/27/22 09/27/22 09/27/22 08:29 12:05 17:13 Sodium Potassium Chloride Carbon Dioxide Anion Gap BUN Creatinine Estim Creat Clear Calc Estimated GFR POC Glucose 259 H 200 H 284 H Fasting Glucose Estimat Average Glucose Hemoglobin A1c % Calcium Total Bilirubin AST ALT Alkaline Phosphatase Total Protein Albumin Triglycerides Cholesterol LDL Cholesterol, Calc HDL Cholesterol Vitamin B12 Folate TSH Free T4 09/27/22 09/28/22 09/28/22 20:46 08:17 12:19 Sodium Potassium Chloride Carbon Dioxide Anion Gap BUN Creatinine Estim Creat Clear Calc Estimated GFR POC Glucose 217 H 265 H 211 H Fasting Glucose Estimat Average Glucose Hemoglobin A1c % Calcium Total Bilirubin AST ALT Alkaline Phosphatase Total Protein Albumin Triglycerides Cholesterol LDL Cholesterol, Calc HDL Cholesterol Vitamin B12 Folate TSH Free T4 09/28/22 09/28/22 09/29/22 17:04 20:49 08:26 Sodium Potassium Chloride Carbon Dioxide Anion Gap BUN Creatinine Estim Creat Clear Calc Estimated GFR POC Glucose 99 169 H 320 H Fasting Glucose Estimat Average Glucose Hemoglobin A1c % Calcium Total Bilirubin AST ALT Alkaline Phosphatase Total Protein Albumin Triglycerides Cholesterol LDL Cholesterol, Calc HDL Cholesterol Vitamin B12 Folate TSH Free T4 09/29/22 09/29/22 09/29/22 12:34 17:13 19:49 Sodium Potassium Chloride Carbon Dioxide Anion Gap BUN Creatinine Estim Creat Clear Calc Estimated GFR POC Glucose 75 221 H 163 H Fasting Glucose Estimat Average Glucose Hemoglobin A1c % Calcium Total Bilirubin AST ALT Alkaline Phosphatase Total Protein Albumin Triglycerides Cholesterol LDL Cholesterol, Calc HDL Cholesterol Vitamin B12 Folate TSH Free T4 09/30/22 09/30/22 07:44 12:28 Sodium Potassium Chloride Carbon Dioxide Anion Gap BUN Creatinine Estim Creat Clear Calc Estimated GFR POC Glucose 250 H 171 H Fasting Glucose Estimat Average Glucose Hemoglobin A1c % Calcium Total Bilirubin AST ALT Alkaline Phosphatase Total Protein Albumin Triglycerides Cholesterol LDL Cholesterol, Calc HDL Cholesterol Vitamin B12 Folate TSH Free T4 DS: Summary Hospital Course Hospital Course: per 09/24 admission note: per crisis eval, pt was wandering on the street flashing her chest at passing cars.? police/EMS brought her to ED for psych eval.? she was unable to provide much Hx to clinicians, asking to be discharged to her brother's home.? [facility] eval noted pt was RIS and cited as her CC, they said i was scratching too much. ? on interview with MD at [facility], pt reports she is here because, i got energy.? they told me i was crashing.? 24 hours.? i'm not looking for a spirit or something. ? she states she does not think medication for schizophrenia is warranted.? she has no questions or concerns.? she appears distracted, with disorganized and blocked thoughts. Past Psychiatric History: schizophrenia by Hx hosps:? a few times. ? numerous, per crisis eval. SA: denies SIB: denies outpt: no current providers Medical Evaluation Reviewed: Hospitalist K[place] Pending [facility] Medical History? HTN (hypertension) Type 2 diabetes mellitus Family History: denies, none known Social History: per crisis eval, lives with her mother and sometimes stays at her brother's house.? stable housing, supportive family.? born in [place], moved to [place] as a child.? left in 9th grade. Substance History: denies, none known Trauma History: none reported Precis: 09/24:? restart vraylar, titrate as tolerated.? continue BP meds. 09/25:? change vraylar to HS.? dosing increased from 3 mg daily to 4.5 mg daily yesterday. 09/26:? daily improvements in Sx.? continue current mgmt. 09/27:? seems quite disorganized thought process - on vraylar- 4.5mg may need more time. 5/15:? no change in mgmt.? planning to discharge weds upon expiry of 3-day notice. 09/30: pt requesting discharge today. med-compliant but still quite symp tomatic. discharged to [facility] staff and supports. Time Spent with Patient Time attestation: Total time managing care of this patient today ____ minutes. Time spent: Greater than 30 minutes Discharge Plan Discharge Anticipated Discharge Date/Time: 09/30/22 13:44 Patient Disposition: Home, Self-Care Discharge Diagnosis: Schizophrenia Referrals: Physician,Unknown J [Primary Care Provider] - 1 Week (Patient to call [facility] for appointment as new patient) Discharge Medications: New Vraylar 1.5 mg Capsule 4.5 mg PO BEDTIME 30 Days Qty: 90 0RF Continued diphenhydramine HCl 50 mg Capsule 50 mg PO Q4-6H PRN (Reason: Allergic Symptoms) lisinopril 5 mg Tablet 5 mg PO DAILY metformin 500 mg Tablet Extended Release 24 Hr 500 mg PO DAILY@1700 Rx Instructions: take with evening meal glipizide 5 mg Tablet 5 mg PO DAILY Discontinued Vraylar 3 mg Capsule 3 mg PO DAILY Discharge Orders: Discharge Order (Routine); Ordered 09/30/22 Ordered By: Jacques Gonzalez Diet: Diabetic diet Activity on Discharge: As tolerated Stand Alone Forms: Patient Portal Discharge page, Community Support Care Plan Goals: remain safe and stable in the outpatient treatment setting Health Concerns: Diabetes Mellitus - you required insulin while hospitalized in order to control your blood sugar. please follow up with your outpatient provider who manages your diabetes for further assessment and management. Plan of Treatment: take medications as prescribed, attend appointments as scheduled Assessment: not at imminent risk of harm to self or others
== END 2022-09-30 15:30 | disposition home or self-care (01) | DRG 750 ==
PROVIDERS: Admitting Provider Psychiatry & Neurology Psychiatry; Visit Provider Psychiatry & Neurology Psychiatry
DX: F20.9 Schizophrenia, unspecified (principal); E11.9 Type 2 diabetes mellitus without complications; I10 Essential (primary) hypertension; Z59.02 Unsheltered homelessness; Z79.84 Long term (current) use of oral hypoglycemic drugs; Z79.899 Other long term (current) drug therapy
CPT/HCPCS: 36415; 80053; 80061; 82607; 82746; 82947; 83036; 84439; 84443